=== PATIENT | female | born 1935 | race Caucasian/White ===

== ENCOUNTER → 2017-01-20 | Outpatient (CLI) | payer MEDICARE, BC | LOC: MW.CHNEURO 10:25 | PROVIDERS: ATTEND Psychiatry & Neurology Neuromuscular Medicine | DX: G62.9 Polyneuropathy, unspecified (principal) | CPT/HCPCS: 36415; 80053; 82607; 83921; 84165 ==

== ENCOUNTER → 2017-03-07 | Outpatient (CLI) | payer MEDICARE, BC | LOC: MW.CHNEURO 08:00 | PROVIDERS: ATTEND Psychiatry & Neurology Neuromuscular Medicine | DX: G62.9 Polyneuropathy, unspecified (principal); G25.2 Other specified forms of tremor; G47.19 Other hypersomnia | CPT/HCPCS: 99214 ==

== ENCOUNTER 2021-06-12 04:35 | Emergency (ER) | payer MEDICARE, BC ==
[2021-06-12] MEDS ORDERED: Sodium Chloride 0.9% 10 ML Syringe FLUSH PRN (04:52)
[2021-06-12] MEDS ORDERED: Sodium Chloride 0.9% 2.5 ML Syringe FLUSH PRN (04:52)
[2021-06-12] MEDS ORDERED: Sodium Chloride 0.9% 500 ML IV SCH (05:00)
[2021-06-12 05:15] LABS: BLOOD UREA NITROGEN,BUN 18 mg/dL (7.0-18.0); CARBON DIOXIDE,CO2 30.6 mmol/L (21.0-32.0); CHLORIDE,CL 95 mmol/L (98-107); GLUCOSE RANDOM 102 mg/dL (74-106); POTASSIUM,K 3.4 mmol/L (3.5-5.1); SODIUM,NA 132 mmol/L (136-145)
--- NOTE | 2021-06-12 05:41 | EDM.PDOC ---
ED HPI GENERAL MEDICAL PROBLEM - General Chief Complaint: General Stated Complaint: WENT UNCONSCIOUS Time Seen by Provider: 06/12/21 04:50 - History of Present Illness INITIAL COMMENTS - FREE TEXT/NARRATIVE: HISTORY AND PHYSICAL: History of present illness: This is an 85-year-old female with a history significant atrial fibrillation who presents ER today secondary to an episode of syncope that was identified by her daughter while she was going to the bathroom. Daughter reports that she heard her mother rustling around so she went to help her walk to the bathroom. She reports that her mother seemed a little weaker than normal so she helped her get to the toilet. She reports that while she was sitting on her toilet her mom started groaning put her head on her shoulder and appeared to have passed out. She reports that she had no agonal respirations and was breathing the entire time. She reports that he became unresponsive for approximately 8 seconds and slowly came around. She reports she did not fall down or hit her head. She denies any recent fevers, shakes, chills, nausea, vomiting, diarrhea, dysuria, frequency or urgency, chest pain, shortness of breath, abdominal pain. Patient denies any dysuria, frequency, urgency, hematuria, melena, bright blood per rectum. Review of systems: As per history of present illness and below otherwise all systems reviewed and negative. Past medical history: As per history of present illness and as reviewed below otherwise noncontributory. Surgical history: As per history of present illness and as reviewed below otherwise noncontributory. Social history: No reported history of drug abuse. Family history: As per history of present illness and as reviewed below otherwise noncontributory. Physical exam: This patient was seen and evaluated during the 2019 SARS-CoV-2 novel coronavirus pandemic period. Community viral transmission is ongoing at time of this encounter and the emergency department is operating under pandemic response procedures. Constitutional: Patient is oriented to person, place, and time. Appears well- developed and well-nourished. No distress. HEENT: Moist mucous membranes Head: Normocephalic and atraumatic Eyes: Right eye exhibits no discharge. Left eye exhibits no discharge. No scleral icterus Neck: Normal range of motion. No tracheal deviation present. Cardiovascular: Normal rate and regular rhythm. Pulmonary: Effort normal, no respiratory distress. Abdominal: No distention Musculoskeletal: Normal range of motion Neurologic: Alert and oriented to person, place and time. Skin: [place], warm and dry. Psychiatric: Normal mood and affect. Behavior is normal. Judgment and thought content normal. Nursing note and vital signs have been reviewed Diagnostics: EKG date June 12, 2021 at 4:36 AM EKG: As interpreted by ER physician: Shirley: Nonspecific ST-T wave abnormalities Right axis deviation No evidence of ST elevation SC Atrial fibrillation rate of 62. Therapeutics: NSS x500 cc Assessment and plan: 85-year-old female who presents ER today with a syncopal episode while going to the bathroom early this morning. Patient's labs are all within normal limits. Patient has a normal CBC, CMP, urinalysis. Patient's EKG appears to be baseline with atrial fibrillation that is rate controlled. No evidence of ST elevation SC. Patient is CT scan of her head which revealed no acute pathology or injury. Patient has been given 500 cc of NSS in the ED. Patient has been alert awake and orient x3 with a nonfocal neuro exam during her evaluation. At this time, I feel that the patient would be stable for discharge home to get plenty rest and to get reevaluated by her doctor next week. Reassessment at the time of disposition demonstrates that the patient is in no acute distress. The patient has remained stable throughout the entire ED visit and is without objective evidence for acute process requiring urgent intervention or hospitalization. The patient is stable for discharge, counseling is provided as documented above, discussed symptomatic treatment and specific conditions for return. I have spoken with the patient/caregiver and discussed todays findings, in addition to providing specific details for the plan of care. Questions are answered and there is agreement with the plan. Definitive disposition and diagnosis as appropriate pending reevaluation and review of above. 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 - Related Data Allergies Allergy/AdvReac Type Severity Reaction Status Date / Time apixaban [From Eliquis] Allergy Hives Verified 06/12/21 04:54 codeine Allergy Vomiting Verified 06/12/21 04:54 simvastatin Allergy Itching Verified 06/12/21 04:54 tramadol Allergy unknown Verified 06/12/21 04:54 Home Meds: Home Meds Dabigatran Etexilate Mesylate [Pradaxa] 150 mg PO BID 04/18/14 [History] Omeprazole 20 mg PO BID 04/18/14 [History] Levothyroxine 25 mcg PO DAILY 03/13/16 [History] dilTIAZem HCL [Diltiazem 24Hr ER] 240 mg PO DAILY 03/13/16 [History] Calcium Carbonate/Vitamin D3 [Calcium 600 + Vit D 200] 1 tab PO DAILY 07/20/16 [History] Multivitamin [Multivitamins] 1 cap PO DAILY 07/20/16 [History] Meclizine HCl 25 mg PO TID PRN #30 tab.chew 08/28/18 [Rx] Cranberry Ext/C/L. 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 Musculoskeletal History: Reports: None Neurological History: Reports: CVA, TIA Psychiatric History: Reports: None Endocrine/Metabolic History: Reports: Hypothyroidism 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: None Hematologic History: Reports: None Immunologic History: Reports: None Oncologic (Cancer) History: Reports: None Dermatologic History: Reports: None - Infectious Disease History Infectious Disease History: Reports: Chicken Pox - Past Surgical History HEENT Surgical History: Reports: Cataract Surgery Cardiovascular Surgical History: Reports: Cardiac Ablation Respiratory Surgical History: Reports: None GI Surgical History: Reports: None Female Surgical History: Reports: None Endocrine Surgical History: Reports: None Neurological Surgical History: Reports: None Musculoskeletal Surgical History: Reports: Knee Replacement Oncologic Surgical History: Reports: None Dermatological Surgical History: Reports: None Social & Family History - Family History Family Medical History: No Pertinent Family History Cardiac: Reports: Heart Failure Oncologic: Reports: Breast, Colon - Caffeine Use Caffeine Use: Reports: None ED ROS GENERAL - Review of Systems Review Of Systems: See Below ED EXAM, GENERAL - Physical Exam Exam: See Below Course - Vital Signs Last Recorded V/S: Last Vital Signs Temp 96.8 F L 06/12/21 04:35 Pulse 68 06/12/21 05:15 Resp 16 06/12/21 05:15 BP 121/73 06/12/21 05:15 Pulse Ox 95 06/12/21 05:15 - Orders/Labs/Meds Orders: Active Orders 24 hr Category Date Time Status Head wo Cont [CT] Stat Exams 06/12/21 05:06 Taken Sodium Chloride 0.9% [Normal Saline] 500 ml Med 06/12/21 05:00 Active IV .BOLUS Sodium Chloride 0.9% [Saline Flush] Med 06/12/21 04:52 Active 10 ml FLUSH ASDIRECTED PRN Sodium Chloride 0.9% [Saline Flush] Med 06/12/21 04:52 Active 2.5 ml FLUSH ASDIRECTED PRN Saline Lock Insert [OM.PC] Stat Oth 06/12/21 04:52 Ordered Medication Orders Sodium Chloride (Normal Saline) 500 mls @ 999 mls/hr IV .BOLUS NICOLE Last Admin: 06/12/21 05:10 Dose: 999 mls/hr Documented by: ROSEANNA Sodium Chloride (Sodium Chloride 0.9% 10 Ml Syringe) 10 ml FLUSH ASDIRECTED PRN PRN Reason: Keep Vein Open Sodium Chloride (Sodium Chloride 0.9% 2.5 Ml Syringe) 2.5 ml FLUSH ASDIRECTED PRN PRN Reason: Keep Vein Open Labs: Laboratory Tests 06/12/21 06/12/21 06/12/21 Range/Units 04:40 04:40 04:52 WBC 4.20 (4.0-11.0) K/uL RBC 3.93 L (4.30-5.90) M/uL Hgb 12.4 (12.0-16.0) g/dL Hct 35.9 L (36.0-46.0) % MCV 91.3 (80.0-98.0) fL MCH 31.6 (27.0-32.0) pg MCHC 34.5 (31.0-37.0) g/dL RDW Std Deviation 44.9 (28.0-62.0) fl RDW Coeff of Debra 13 (11.0-15.0) % Plt Count 240 (150-400) K/uL MPV 9.10 (7.40-12.00) fL Neut % (Auto) 49.3 (48.0-80.0) % Lymph % (Auto) 31.9 (16.0-40.0) % Shannon % (Auto) 13.3 (0.0-15.0) % Eos % (Auto) 4.3 (0.0-7.0) % Baso % (Auto) 1.2 (0.0-1.5) % Neut # (Auto) 2.1 (1.4-5.7) K/uL Lymph # (Auto) 1.3 (0.6-2.4) K/uL Shannon # (Auto) 0.6 (0.0-0.8) K/uL Eos # (Auto) 0.2 (0.0-0.7) K/uL Baso # (Auto) 0.1 (0.0-0.1) K/uL Nucleated RBC % 0.0 /100WBC Nucleated RBCs # 0 K/uL Sodium 132 L (136-145) mmol/L Potassium 3.4 L (3.5-5.1) mmol/L Chloride 95 L (98-107) mmol/L Carbon Dioxide 30.6 (21.0-32.0) mmol/L BUN 18 (7.0-18.0) mg/dL Creatinine 1.0 (0.6-1.0) mg/dL Est Cr Clr Drug Dosing 34.23 mL/min Estimated GFR (MDRD) 52.4 ml/min Glucose 102 (74-106) mg/dL POC Glucose 97 (70-99) mg/dL Calcium 8.5 (8.5-10.1) mg/dL Total Bilirubin 0.3 (0.2-1.0) mg/dL AST 17 (15-37) IU/L ALT 16 (14-63) IU/L Alkaline Phosphatase 61 (46-116) U/L Troponin I < 0.050 (0.000-0.056) ng/mL Total Protein 6.8 (6.4-8.2) g/dL Albumin 3.3 L (3.4-5.0) g/dL Globulin 3.5 (2.6-4.0) g/dL Albumin/Globulin Ratio 0.9 (0.9-1.6) Urine Color Urine Appearance Urine pH (5.0-8.0) Ur Specific [place] (1.001-1.035) Urine Protein (NEGATIVE) mg/dL Urine Glucose (UA) (NEGATIVE) mg/dL Urine Ketones (NEGATIVE) mg/dL Urine Occult Blood (NEGATIVE) Urine Nitrite (NEGATIVE) Urine Bilirubin (NEGATIVE) Urine Urobilinogen (<2.0) EU/dL Ur Leukocyte Esterase (NEGATIVE) 06/12/21 Range/Units 05:10 WBC (4.0-11.0) K/uL RBC (4.30-5.90) M/uL Hgb (12.0-16.0) g/dL Hct (36.0-46.0) % MCV (80.0-98.0) fL MCH (27.0-32.0) pg MCHC (31.0-37.0) g/dL RDW Std Deviation (28.0-62.0) fl RDW Coeff of Debra (11.0-15.0) % Plt Count (150-400) K/uL MPV (7.40-12.00) fL Neut % (Auto) (48.0-80.0) % Lymph % (Auto) (16.0-40.0) % Shannon % (Auto) (0.0-15.0) % Eos % (Auto) (0.0-7.0) % Baso % (Auto) (0.0-1.5) % Neut # (Auto) (1.4-5.7) K/uL Lymph # (Auto) (0.6-2.4) K/uL Shannon # (Auto) (0.0-0.8) K/uL Eos # (Auto) (0.0-0.7) K/uL Baso # (Auto) (0.0-0.1) K/uL Nucleated RBC % /100WBC Nucleated RBCs # K/uL Sodium (136-145) mmol/L Potassium (3.5-5.1) mmol/L Chloride (98-107) mmol/L Carbon Dioxide (21.0-32.0) mmol/L BUN (7.0-18.0) mg/dL Creatinine (0.6-1.0) mg/dL Est Cr Clr Drug Dosing mL/min Estimated GFR (MDRD) ml/min Glucose (74-106) mg/dL POC Glucose (70-99) mg/dL Calcium (8.5-10.1) mg/dL Total Bilirubin (0.2-1.0) mg/dL AST (15-37) IU/L ALT (14-63) IU/L Alkaline Phosphatase (46-116) U/L Troponin I (0.000-0.056) ng/mL Total Protein (6.4-8.2) g/dL Albumin (3.4-5.0) g/dL Globulin (2.6-4.0) g/dL Albumin/Globulin Ratio (0.9-1.6) Urine Color YELLOW Urine Appearance CLEAR Urine pH 7.0 (5.0-8.0) Ur Specific [place] 1.010 (1.001-1.035) Urine Protein NEGATIVE (NEGATIVE) mg/dL Urine Glucose (UA) NEGATIVE (NEGATIVE) mg/dL Urine Ketones NEGATIVE (NEGATIVE) mg/dL Urine Occult Blood NEGATIVE (NEGATIVE) Urine Nitrite NEGATIVE (NEGATIVE) Urine Bilirubin NEGATIVE (NEGATIVE) Urine Urobilinogen 0.2 (<2.0) EU/dL Ur Leukocyte Esterase NEGATIVE (NEGATIVE) Meds: Medications Generic Name Dose Route Start Last Admin Trade Name Freq PRN Reason Stop Dose Admin Sodium Chloride 500 mls @ 999 mls/hr 06/12/21 05:00 06/12/21 05:10 Normal Saline IV 999 mls/hr .BOLUS NICOLE Administration Sodium Chloride 10 ml 06/12/21 04:52 Sodium Chloride 0.9% 10 Ml Syringe FLUSH ASDIRECTED PRN Keep Vein Open Sodium Chloride 2.5 ml 06/12/21 04:52 Sodium Chloride 0.9% 2.5 Ml Syringe FLUSH ASDIRECTED PRN Keep Vein Open Departure - Departure Time of Disposition: 05:46 Disposition: Home, Self-Care 01 Condition: Good Clinical Impression: Syncope Qualifiers: Syncope type: unspecified Qualified Code(s): R55 - Syncope and collapse Atrial fibrillation Qualifiers: Atrial fibrillation type: longstanding persistent Qualified Code(s): I48.11 - Longstanding persistent atrial fibrillation - Discharge Information Instructions: Syncope, Atrial Fibrillation Referrals: Grey Ruiz MD [Primary Care Provider] - Forms: ED Department Discharge Additional Instructions: You were seen and evaluated in ER today secondary to an episode of passing out. All your blood tests are within normal limits here in the ED. Your CT scan of your head revealed no abnormalities to explain your passing out. At this time, since everything appears normal I feel that it is safe to go home to get plenty of rest and drink plenty of liquids over the next several days. Please return to the ER if you develop any new or concerning symptoms. Please make an appointment to see your family doctor next week for reevaluation. The following information is given to patients seen in the emergency department who are being discharged to home. This information is to outline your options for follow-up care. We provide all patients seen in our emergency department with a follow-up referral. The need for follow-up, as well as the timing and circumstances, are variable depending upon the specifics of your emergency department visit. If you don't have a primary care physician on staff, we will provide you with a referral. We always advise you to contact your personal physician following an emergency department visit to inform them of the circumstance of the visit and for follow-up with them and/or the need for any referrals to a consulting specialist. The emergency department will also refer you to a specialist when appropriate. This referral assures that you have the opportunity for follow-up care with a specialist. All of these measure are taken in an effort to provide you with optimal care, which includes your follow-up. Under all circumstances we always encourage you to contact your private physician who remains a resource for coordinating your care. When calling for follow-up care, please make the office aware that this follow-up is from your recent emergency room visit. If for any reason you are refused follow-up, please contact the [facility] Emergency Department at and asked to speak to the emergency department charge nurse. [facility] - Primary Care [address] [place] [id number] [address] Sepsis Event Note (ED) - Focused Exam Vital Signs: Vital Signs Temp Pulse Resp BP Pulse Ox 06/12/21 05:15 68 16 121/73 95 06/12/21 04:35 96.8 F L 72 18 127/81 96 - My Orders Last 24 Hours: My Active Orders 06/12/21 04:52 Sodium Chloride 0.9% [Saline Flush] 10 ml FLUSH ASDIRECTED PRN Sodium Chloride 0.9% [Saline Flush] 2.5 ml FLUSH ASDIRECTED PRN Saline Lock Insert [OM.PC] Stat 06/12/21 05:00 Sodium Chloride 0.9% [Normal Saline] 500 ml IV .BOLUS 06/12/21 05:06 Head wo Cont [CT] Stat - Assessment/Plan Last 24 Hours: My Active Orders 06/12/21 04:52 Sodium Chloride 0.9% [Saline Flush] 10 ml FLUSH ASDIRECTED PRN Sodium Chloride 0.9% [Saline Flush] 2.5 ml FLUSH ASDIRECTED PRN Saline Lock Insert [OM.PC] Stat 06/12/21 05:00 Sodium Chloride 0.9% [Normal Saline] 500 ml IV .BOLUS 06/12/21 05:06 Head wo Cont [CT] Stat
--- NOTE | 2021-06-12 06:01 | CT ---
Indication: Fall Technique: Nonenhanced axial CT imaging through the head. Sagittal and coronal reconstructions are provided. Comparison: CT head without contrast 08/28/2018 Findings: There is no intracranial hemorrhage, edema, or mass effect. Bean-white matter differentiation is preserved. There is patchy hypoattenuation of the cerebral white matter, most likely reflecting chronic microvascular ischemic change, similar to prior. The ventricles are normal in size. The basal cisterns are patent. The calvarium is intact. The visualized paranasal sinuses and mastoid air cells are aerated. Degenerative changes are noted in the temporomandibular joints bilaterally. Impression: 1. No acute intracranial process. 2. Chronic white matter changes, similar to prior. Please note that all CT scans at this facility use dose modulation, iterative reconstruction, and/or weight-based dosing when appropriate to reduce radiation dose to as low as reasonably achievable. Dictated by Tena Ayers MD @ 06/12/2021 5:59:[address] Tena Ayers @ Jun 12 2021 5:59AM
[2021-06-12 06:28] VITALS: BP 124/86; PULSE 72
== END 2021-06-12 06:15 | disposition home or self-care (01) ==
LOC: MW.ED 04:35
DX: R55 Syncope and collapse (principal); I48.11 Longstanding persistent atrial fibrillation; K21.9 Gastro-esophageal reflux disease without esophagitis; E03.9 Hypothyroidism, unspecified; Z79.899 Other long term (current) drug therapy; Z86.73 Personal history of transient ischemic attack (TIA), and cerebral infarction without residual deficits; Z88.5 Allergy status to narcotic agent; Z88.8 Allergy status to other drugs, medicaments and biological substances
CPT/HCPCS: 36415; 70450; 80053; 81003; 82947; 84484; 85025; 93005; 99285; J7040